=== PATIENT | female | born 1965 | race Caucasian/White ===

== ENCOUNTER 2017-12-23 13:28 | Day surgery (SDC) | payer OTHER ==
[2017-12-23] MEDS: BUPIVACAINE 0.25% (MPF) 30 ML INJ INJ
[2017-12-23] MEDS ORDERED: SOD CHLORIDE 0.9% 1,000 ML IV (15:00)
[2017-12-23] MEDS ORDERED: FENTAnyl 50 MCG/ML VIAL (17:07)
[2017-12-23] MEDS: CEFAZOLIN 2 GM/50 ML (PMX) 50 ML IVPB (17:23)
[2017-12-23] MEDS ORDERED: HYDROmorphONE (0.2 MG/ML) 10ML SYG IV ×2 (17:30)
[2017-12-23] MEDS ORDERED: MEPERIDINE 25 MG INJ IV (17:30)
[2017-12-23] MEDS ORDERED: DIPHENHYDRAMINE 50 MG INJ IV (17:30)
[2017-12-23] MEDS ORDERED: ONDANSETRON 4 MG INJ IV (17:30)
[2017-12-23] MEDS ORDERED: METOCLOPRAMIDE 10 MG INJ IV (17:30)
[2017-12-23] MEDS ORDERED: FENTAnyl 50 MCG/ML VIAL IV (17:30)
[2017-12-23] MEDS ORDERED: LIDOCAINE 100 MG SYRINGE (17:35)
[2017-12-23] MEDS ORDERED: CEFAZOLIN 1 GM INJ (17:35)
[2017-12-23] MEDS ORDERED: SUCCINYLCHOLINE CHLORIDE 100 MG/5 ML SYG IV (17:35)
[2017-12-23] MEDS ORDERED: PROPOFOL 20 ML (17:35)
[2017-12-23] MEDS ORDERED: ROCURONIUM 50 MG INJ (17:35)
[2017-12-23] MEDS ORDERED: SUGAMMADEX SODIUM 200 MG/2 ML VIAL IV (17:35)
[2017-12-23] MEDS: BUPIVACAINE 0.25% (MPF) 30 ML INJ (17:50)
[2017-12-23] MEDS: HYDROmorphONE (0.2 MG/ML) 10ML SYG IV (18:43)
[2017-12-23] MEDS: FENTAnyl 50 MCG/ML VIAL IV (18:43)
[2017-12-23] MEDS: HYDROCODONE/APAP (5/325) TAB PO (18:58)
== END 2017-12-29 10:56 | disposition home or self-care (01) ==
LOC: SDS 13:28
DX: K62.0 Anal polyp (principal); D22.5 Melanocytic nevi of trunk
CPT/HCPCS: 14000; 84703; 88307